=== PATIENT | male | born 1950 | race Caucasian/White ===

== ENCOUNTER 2018-02-01 22:24 | Emergency (ER) | payer SELFPAY ==
[~2018-02-01] VITALS: Ht 193 cm; Wt 109.8 kg
[2018-02-01 22:51] LABS: BASOPHILS ABSOLUTE AUTO 0.04 K/mm3 (0.00-0.23); BASOPHILS PERCENT AUTO 1 % (0-2); EOSINOPHILS ABSOLUTE AUTO 0.28 K/mm3 (0.00-0.68); EOSINOPHILS PERCENT AUTO 4 % (0-6); Hematocrit 38.6 % (37.0-53.0); IMMATURE GRAN ABSOLUTE AUTO 0.01 K/mm3 (0.00-0.10); IMMATURE GRAN PERCENT AUTO 0 % (0-1); LYMPHOCYTES ABSOLUTE AUTO 1.94 K/mm3 (0.84-5.20); LYMPHOCYTES PERCENT AUTO 27 % (21-46); MONOCYTES ABSOLUTE AUTO 0.81 K/mm3 (0.16-1.47); MONOCYTES PERCENT AUTO 11 % (4-13); Mean Corpuscular HGB 28.4 pg (26.0-34.0); Mean Corpuscular HGB Conc 33.7 g/dL (31.5-36.5); Mean Corpuscular Volume 85 fL (80-100); Mean Platelet Volume 10.4 fL (9.1-12.4); NEUTROPHILS ABSOLUTE AUTO 4.03 K/mm3 (1.96-9.15); NEUTROPHILS PERCENT AUTO 57 % (41-73); Platelet Count 258 K/mm3 (150-400); RDW Coefficient Variation 13.2 % (11.7-14.2); Red Blood Cell Count 4.57 M/mm3 (4.30-5.90); White Blood Cell Count 7.11 K/mm3 (4.00-11.30)
[2018-02-01 23:12] LABS: Alanine Aminotransfer (ALT/SGP 28 U/L (12-78); Albumin, Blood 3.6 g/dL (3.4-5.0); Albumin/Globulin Ratio 0.9 (0.8-1.8); Alk Phos 83 U/L (50-136); Anion Gap 7 mmol/L (6-16); Aspartate Aminotrans (AST/SGOT 46 U/L (12-37); Bilirubin, Total 0.4 mg/dL (0.1-1.0); Blood Urea Nitrogen 19 mg/dL (8-24); Bun/Creatinine Ratio 19.3 (12.0-20.0); CO2, Blood 25 mmol/L (21-32); Calcium, Blood 8.5 mg/dL (8.5-10.1); Chloride, Blood 110 mmol/L (98-108); Creatinine, Blood 0.99 mg/dL (0.60-1.20); Globulin, Blood 4.1 g/dL (2.2-4.0); Glomerular Filtration Rate >60 (60-); Glucose, Blood 89 mg/dL (70-99); Sodium, Blood 142 mmol/L (136-145); Total Protein, Blood 7.7 g/dL (6.4-8.2); Troponin I <0.015 ng/mL (0.000-0.040)
[2018-02-01] MEDS ORDERED: CARV6.25 PO (23:46)
[2018-02-01] MEDS ORDERED: NORT25 PO (23:46)
[2018-02-01] MEDS ORDERED: GUAI600T33 PO (23:47)
[2018-02-01] MEDS ORDERED: CYCL10 PO (23:48)
[2018-02-01] MEDS ORDERED: ALPR1 PO (23:48)
[2018-02-01] MEDS ORDERED: DOCU100 PO (23:49)
[2018-02-01] MEDS ORDERED: ALBU90OI61 INH (23:49)
== END 2018-02-02 01:22 | disposition home or self-care (01) ==
LOC: ER 22:24
PROVIDERS: Emergency Medicine
DX: R07.89 Other chest pain (principal); J44.9 Chronic obstructive pulmonary disease, unspecified; Z87.891 Personal history of nicotine dependence
CPT/HCPCS: 71046; 80053; 84484; 85025; 93005; 93010; 96374; 96375; 99284; J2405; J3010

== ENCOUNTER 2021-04-22 05:55 | Day surgery (SDC) | payer OTHER ==
[~2021-04-22] VITALS: Ht 193 cm; Wt 112.2 kg
[~2021-04-22 05:55] MED LIST: ALBU90OI61 INH; ALPR1 PO; BENZ100A PO; CARV25 PO; CARV6.25 PO; CHLO25B PO; CYCL10 PO; DOCU100 PO; GUAI600T33 PO; IBUP800 PO; Mucus Relief400 MG PO; NORT25 PO; Nortriptyline H50 MG PO; SENNA LAXATIVE8.6 MG PO; SYMBICORT 160-4.6 GM INH; TIOT18 INH; VITAMIN B125000 MC1 PO; XOPENEX HFA15 GM INH
[2021-04-22] MEDS ORDERED: GLUC500 (06:28)
--- NOTE | 2021-04-22 07:34 | NUR ---
04/22/21 0734 Carmen Muhammad History, Chart, Medications and Allergies reviewed before start of procedure.Patient confirms NPO status and agrees with scheduled surgery.MONITOR INTACT WITH CONTINUOUS PULSE OXIMETRY AND INTERMITTENT BP.O2 VIA N/C INTACT THROUGHOUT SEDATION/PROCEDURE. See Anesthesia record
--- NOTE | 2021-04-22 09:02 | NUR ---
Patient up to Ambulate independently. Gait steady. Discharge instructions reviewed with patient AND IN CONSULT ROOM. INSTRUCTIONG GIVEN AND DEMONSTRATED ON HOW TO USE PEG TUBE FOR MEDICATIONS AND FEEDINGS BY ALEXY RN AND DESHAWN RN. QUESTIONS ANSWERED.Patient AND verbalizes understanding. Copy given to patient to take home. Discharged via wheelchair to private car for ride home WITH
== END 2021-04-22 09:00 | disposition home or self-care (01) ==
LOC: ORSCMMR 05:55 → ORD 07:30 → ORSCMMR 07:30
PROVIDERS: Surgery
PROC: 0DH63UZ Insertion of Feeding Device into Stomach, Percutaneous Approach (ICD-10-PCS; principal; 2021-04-22 07:30)
DX: R13.12 Dysphagia, oropharyngeal phase (principal); I10 Essential (primary) hypertension; J44.9 Chronic obstructive pulmonary disease, unspecified; Z87.891 Personal history of nicotine dependence; G47.33 Obstructive sleep apnea (adult) (pediatric); Z79.899 Other long term (current) drug therapy; B19.20 Unspecified viral hepatitis C without hepatic coma
CPT/HCPCS: J0690; J2704; J3010; J7120

== ENCOUNTER 2023-08-06 06:01 | Day surgery (SDC) | payer OTHER ==
[2023-08-06] VITALS (17 sets, daily range): BP systolic 95–138; BP diastolic 47–88
[~2023-08-06] VITALS: Ht 193 cm; Wt 105.4 kg
[~2023-08-06 06:01] MED LIST changes: +CARV25; -CARV25 PO; +GLUC500; +IBUP800; -IBUP800 PO; +METO10 PO; +Nortriptyline H50 MG; -Nortriptyline H50 MG PO; +SLEEPING MED TUBE
--- NOTE | 2023-08-06 07:01 | NUR ---
History, Chart, Medications and Allergies reviewed before start of procedure. Lungs clear T/O to Auscultation. Patient confirms NPO status and agrees with scheduled surgery. Pre-Op teaching done. Pt verbalizes understanding. Patient reports completing Chlorhexadine shower X2 prior to admission to hospital.
--- NOTE | 2023-08-06 10:49 | NUR ---
PT ARRIVED TO THE ROOM AT APPROXIMATELY 1050. PT IS ALERT AND ORIENTED. PAIN MANAGED AT THIS TIME. VSS. PT GIVEN SWABS TO MOISTERIZE HIS MOUTH. PT WILL REMAIN NPO SINCE HE HAS A PEG TUBE AT BASELINE.
--- NOTE | 2023-08-06 16:07 | NUR ---
SHIFT SUMMARY PT IS POD#0 FROM R [facility] WITH DR. BATISTA. PAIN MANAGED WITH ORDERED PAIN MEDICATION. PT WORKED WITH THERAPY TODAY AND IS A 1 ASSIST WHEN OOB. PT ADMINISTERING HIS OWN TUBE FEEDINGS PER HOME ROUTINE AND TOLERATING WELL. PT HAS VOIDED. PT RESTING IN HIS RECLINER, CALL LIGHT WITHIN REACH.
--- NOTE | 2023-08-06 19:19 | NUR ---
PT HAS HAD DECREASED PEDAL PULSE, CAP REFIL OF 3 SECONDS AND COOL R FOOT POST OP. DR. BATISTA NOTIFIED. WARM BLANKET PLACED THIS EVENING, PEDAL PULSE REMAINS FAINT, R FOOT IS NOW WARM AND CAP REFIL IS BRISK. TIBIAL PULSE STRONG. NOC RN NOTIFIED.
[2023-08-07 00:06] VITALS: BP 119/65
[2023-08-07 02:19] VITALS: BP 122/64
[2023-08-07 04:21] LABS: BASOPHILS ABSOLUTE AUTO 0.01 K/mm3 (0.00-0.23); BASOPHILS PERCENT AUTO 0 % (0-2); EOSINOPHILS ABSOLUTE AUTO 0.02 K/mm3 (0.00-0.68); EOSINOPHILS PERCENT AUTO 0 % (0-6); Hematocrit 35.1 % (37.0-53.0); Hemoglobin 11.7 g/dL (13.5-17.5); IMMATURE GRAN ABSOLUTE AUTO 0.05 K/mm3 (0.00-0.10); IMMATURE GRAN PERCENT AUTO 0 % (0-1); LYMPHOCYTES ABSOLUTE AUTO 0.94 K/mm3 (0.84-5.20); LYMPHOCYTES PERCENT AUTO 6 % (21-46); MONOCYTES ABSOLUTE AUTO 1.53 K/mm3 (0.16-1.47); MONOCYTES PERCENT AUTO 10 % (4-13); Mean Corpuscular HGB 29.9 pg (26.0-34.0); Mean Corpuscular HGB Conc 33.3 g/dL (31.5-36.5); Mean Corpuscular Volume 90 fL (80-100); Mean Platelet Volume 11.7 fL (9.1-12.4); NEUTROPHILS ABSOLUTE AUTO 12.59 K/mm3 (1.96-9.15); NEUTROPHILS PERCENT AUTO 83 % (41-73); Platelet Count 179 K/mm3 (150-400); RDW Coefficient Variation 13.1 % (11.7-14.2); RDW Standard Deviation 42.9 fL (35.1-46.3); Red Blood Cell Count 3.91 M/mm3 (4.30-5.90); White Blood Cell Count 15.14 K/mm3 (4.00-11.30)
[2023-08-07 04:47] LABS: Bun/Creatinine Ratio 24.1 (12.0-20.0); Calcium, Blood 7.9 mg/dL (8.5-10.1); Creatinine, Blood 0.67 mg/dL (0.60-1.20); Magnesium, Blood 2.3 mg/dL (1.6-2.4)
[2023-08-07 07:10] VITALS: BP 111/54
--- NOTE | 2023-08-07 07:39 | NUR ---
SHIFT SUMMARY POD #1 R.RONALD PT IS A&O X4, VSS, ON RA, PAIN WNL, SURGICAL DRSG C/D/I, DENIES N/T, CIRC WNL. PT IS DRESSED AND UP IN THE CHAIR THIS AM WAITING FOR THERAPY, BEDSIDE REPORT GIVEN TO DAVID PALMA.
[2023-08-07 09:29] VITALS: BP 113/73
--- NOTE | 2023-08-07 14:29 | NUR ---
DISCHARGE NOTE- PT WAS GIVEN VERBAL AND WRITTEN DISCHARGE INSTRUCTIONS AND ACKNOWLEDGED UNDERSTANDING OF THEM. PT WAS ASSISTED TO PIVOT TRANSFER TO THE WC, AND IS BEING ESCORTED OUT VIA WC BY THE [employer] SUPERVISOR. NO S&S OF DISTRESS NOTED AT THE TIME OF DISCHARGE. IV DC'D PRIOR TO DISCHARGE.
== END 2023-08-07 14:28 | disposition home or self-care (01) ==
LOC: ORSCMMR 06:01 → ORD 07:30 → ORSCMMR 07:30 → SURS 11:15 → ORSCMMR 08-07 14:28
PROVIDERS: Orthopaedic Surgery
PROC: 0SR90J9 Replacement of Right Hip Joint with Synthetic Substitute, Cemented, Open Approach (ICD-10-PCS; principal; 2023-08-06 07:30)
DX: M16.11 Unilateral primary osteoarthritis, right hip (principal); I10 Essential (primary) hypertension; J44.9 Chronic obstructive pulmonary disease, unspecified; G47.33 Obstructive sleep apnea (adult) (pediatric); B19.20 Unspecified viral hepatitis C without hepatic coma; Z79.899 Other long term (current) drug therapy
CPT/HCPCS: 36415; 72170; 80048; 83735; 85025; 94660; 94762; 97110; 97116; 97162; A9270; C1776; J0171; J0690; J0735; J1100; J1885; J2405; J2704; J2710; J2795; J3010; J7120

== ENCOUNTER 2023-08-11 12:08 | Emergency (ER) | payer OTHER ==
[~2023-08-11] VITALS: Ht 182.9 cm; Wt 104.3 kg
[2023-08-11 12:10] VITALS: BP 140/72
[2023-08-11 12:35] LABS: BASOPHILS ABSOLUTE AUTO 0.03 K/mm3 (0.00-0.23); BASOPHILS PERCENT AUTO 1 % (0-2); EOSINOPHILS ABSOLUTE AUTO 0.21 K/mm3 (0.00-0.68); EOSINOPHILS PERCENT AUTO 4 % (0-6); Hematocrit 34.1 % (37.0-53.0); Hemoglobin 11.5 g/dL (13.5-17.5); IMMATURE GRAN ABSOLUTE AUTO 0.02 K/mm3 (0.00-0.10); IMMATURE GRAN PERCENT AUTO 0 % (0-1); LYMPHOCYTES ABSOLUTE AUTO 0.78 K/mm3 (0.84-5.20); LYMPHOCYTES PERCENT AUTO 13 % (21-46); MONOCYTES ABSOLUTE AUTO 0.64 K/mm3 (0.16-1.47); MONOCYTES PERCENT AUTO 11 % (4-13); Mean Corpuscular HGB 30.1 pg (26.0-34.0); Mean Corpuscular HGB Conc 33.7 g/dL (31.5-36.5); Mean Corpuscular Volume 89 fL (80-100); Mean Platelet Volume 11.6 fL (9.1-12.4); NEUTROPHILS ABSOLUTE AUTO 4.18 K/mm3 (1.96-9.15); NEUTROPHILS PERCENT AUTO 71 % (41-73); Platelet Count 303 K/mm3 (150-400); RDW Coefficient Variation 13.2 % (11.7-14.2); RDW Standard Deviation 43.4 fL (35.1-46.3); Red Blood Cell Count 3.82 M/mm3 (4.30-5.90); White Blood Cell Count 5.86 K/mm3 (4.00-11.30)
[2023-08-11 13:03] LABS: Albumin/Globulin Ratio 0.7 (0.8-1.8); Bilirubin, Total 0.6 mg/dL (0.1-1.0); Bun/Creatinine Ratio 24.5 (12.0-20.0); Calcium, Blood 8.5 mg/dL (8.5-10.1); Creatinine, Blood 0.61 mg/dL (0.60-1.20); Globulin, Blood 4.1 g/dL (2.2-4.0); Potassium, Blood 4.2 mmol/L (3.5-5.5); Total Protein, Blood 7.1 g/dL (6.4-8.2)
== END 2023-08-11 17:14 | disposition home or self-care (01) ==
LOC: ER 12:08
PROVIDERS: Physician Assistant
DX: Z48.01 Encounter for change or removal of surgical wound dressing (principal); M79.89 Other specified soft tissue disorders; R20.8 Other disturbances of skin sensation; J44.9 Chronic obstructive pulmonary disease, unspecified; Z88.0 Allergy status to penicillin; Z88.5 Allergy status to narcotic agent; Z88.8 Allergy status to other drugs, medicaments and biological substances; Z79.899 Other long term (current) drug therapy; Z79.51 Long term (current) use of inhaled steroids; Z87.891 Personal history of nicotine dependence; Z96.641 Presence of right artificial hip joint
CPT/HCPCS: 80053; 85025

== ENCOUNTER 2024-07-14 06:55 | Day surgery (SDC) | payer OTHER ==
[~2024-07-14] VITALS: Ht 193 cm; Wt 105.8 kg
[2024-07-14] VITALS (14 sets, daily range): BP systolic 113–146; BP diastolic 67–81
[~2024-07-14 06:55] MED LIST changes: +CYCL10 PT
[2024-07-14] MEDS ORDERED: Promethazine HCl 25 MG Tab PO PRN (07:40)
[2024-07-14] MEDS ORDERED: Cyclobenzaprine HCl 10 MG Tab PT PRN (07:40)
[2024-07-14] MEDS ORDERED: OxyCODONE HCL 5 MG TAB PO PRN ×2 (07:40)
[2024-07-14] MEDS ORDERED: FLU VACC TS2024-25(6MOS UP)/PF 45 MCG/0.5 ML SYRINGE IM SCH (07:45)
[2024-07-14] MEDS ORDERED: HYDROmorphone HCl/Pf 1MG SYR IV PRN (07:45)
[2024-07-14] MEDS ORDERED: DiphenhydrAMINE HCL 25 MG Cap PO PRN (07:45)
[2024-07-14] MEDS ORDERED: Bisacodyl 10 MG Supp PR PRN (07:45)
[2024-07-14] MEDS ORDERED: CeFAZolin Sodium 2,000 MG in NS 100 ML IV SCH ×2 (07:50→18:00)
[2024-07-14] MEDS ORDERED: Metoclopramide HCl 5MG / ML 2ML Vial IV PRN (07:50)
[2024-07-14] MEDS ORDERED: Acetaminophen 500 MG Tab PO SCH ×2 (07:50→16:00)
[2024-07-14] MEDS ORDERED: Ropivacaine 0.5% HCl/Pf 123.125 MG,EPINEPHrine HCL 0.25 MG,Ketorolac Tromethamine 15 MG... INFIL SCH (07:50)
[2024-07-14] MEDS ORDERED: Lactated Ringer's 1,000 ML IV SCH ×2 (07:50)
[2024-07-14] MEDS ORDERED: Tranexamic Acid 100 ML IV SCH (07:50)
[2024-07-14] MEDS ORDERED: OxyCODONE HCL 10 MG TABCR PO SCH (07:50)
[2024-07-14] MEDS ORDERED: Ondansetron HCl 2 MG / ML 2ML Vial IV PRN (07:50)
[2024-07-14] MEDS ORDERED: Magnesium Hydroxide Conc 10 ML UDC PO PRN (07:50)
[2024-07-14] MEDS ORDERED: Chlorhexidine Mouth Care 15 ML UDC MT SCH (07:50)
[2024-07-14] MEDS ORDERED: Carvedilol 25 MG Tab PO SCH (08:00)
[2024-07-14] MEDS ORDERED: Mometasone/Formoterol MDI 200/5 mcg 13 GM INH SCH (08:05)
[2024-07-14] MEDS ORDERED: HydroCHLOROthiazide 25 mg Tab PO SCH (09:00)
[2024-07-14] MEDS ORDERED: Docusate Sodium 100 MG Cap PO SCH (09:00)
--- NOTE | 2024-07-14 09:02 | NUR ---
History, Chart, Medications and Allergies reviewed before start of procedure. Pre-Op teaching done. Pt verbalizes understanding. Patient confirms NPO status and agrees with scheduled surgery. PT BELONGINGS BAG AND CANE PLACED UNDER BED.
--- NOTE | 2024-07-14 09:03 | NUR ---
PT PUT UPPER DENTURES IN CUP AND GAVE TO AT .
[2024-07-14] MEDS ORDERED: Acetaminophen 160MG / 5ML 10.15 UDC PO ONE (09:25)
[2024-07-14] MEDS ORDERED: propofoL 20 ML IV ONE (09:47)
[2024-07-14] MEDS ORDERED: SuccINYLCHOLINE Chloride 100 MG/5 ML 5MLSYR ONE (09:48)
[2024-07-14] MEDS ORDERED: FentaNYL Citrate 50 MCG/ML 2 ML Injection ONE ×2 (09:48→10:22)
[2024-07-14] MEDS ORDERED: Rocuronium Bromide 10 MG/ML 5ML Injection IV ONE (10:10)
--- NOTE | 2024-07-14 10:37 | NUR ---
07/14/24 Anita Araiza SMALL REDDENED AREA SIZE OF A PENCIL ERASER NOTED ON PATIENT'S RIGHT LOWER DEAN. DR. BATISTA NOTIFIED.
[2024-07-14] MEDS ORDERED: ePHEDrine Sulfate 50 MG/ML 1ML Injection ONE (11:10)
[2024-07-14] MEDS ORDERED: EpiNEPhrine 1 MG/1 ML 1ML Vial ONE (11:11)
[2024-07-14] MEDS ORDERED: Ondansetron HCl 2 MG / ML 2ML Vial ONE (11:15)
[2024-07-14] MEDS ORDERED: Sugammadex Sodium 200 MG/2ML SDV (100 MG/ML) ONE (11:35)
[2024-07-14] MEDS ORDERED: Ketorolac Tromethamine 15mg Vial IV SCH (12:00)
[2024-07-14] MEDS ORDERED: Ketorolac Tromethamine 30mg Vial ONE (12:19)
--- NOTE | 2024-07-14 12:50 | NUR ---
ARRIVAL TO UNIT PT ARRIVED TO UNIT FROM PACU VIA BED. PT A&0 x4. PT REPORTS NO NAUSEA; NPO. PT BASELINE USE OF PEG TUBE x3 YEARS. VSS. FAMILY AT BEDSIDE. THRIGH HIGH HÉCTOR HOSE TO RLE c GAUZE OVER INCISION SITE, C/D/I. POLAR PACK IN USE. PT REPORTS BASELINE PAIN OF 3/10, REPORTS NO INCREASED PAIN TO SURGICAL AREA. NO NEEDS STATED AT THIS TIME. CALL LIGHT IN REACH, BED IN LOWEST POSITION, ORIENTED TO UNIT.
[2024-07-14] MEDS ORDERED: Acetaminophen 160MG / 5ML 10.15 UDC PO SCH (16:00)
[2024-07-14] MEDS ORDERED: Carvedilol 25 MG Tab PT SCH (17:00)
[2024-07-14] MEDS ORDERED: Protein Supplement 30 ML UD PT SCH ×2 (17:45→21:00)
--- NOTE | 2024-07-14 19:58 | NUR ---
SHIFT SUMMARY POD 0 R TKA. NO ACUTE CHANGES TODAY. VSS. TOLERATING DIET PER PEG TUBE. PT REPORTS LIQUACEL PER EMAR REQUIRES LARGER DILUTENT VOLUME R/T "BEING TOO THICK" FOR EASE OF DRAINGE IN TUBE. PT REPORTS TUBE CLOGGED AFTER ADMINISTRATION & ABLE TO CLEAR TUBING c HOME BRUSH SUPPLIES. OTHER MEDICATIONS ADMINISTERED VIA TUBE, PT TOLERATED WELL. PT REPORTS PAIN TOLERABLE, MEDICATED PER EMAR. GAUZE TO INCISION SITE C/D/I c SCANT SANG DRAINAGE AT TOP OF DRESSING. POLAR PACK IN USE. PHYSCIAL THERAPY WORKED c PATIENT, PT TOLERATES AMB WELL c USE OF HOME FWW. IV ABX INFUSING PER EMAR. VOIDING USING URINAL. ANTICIPATED DISHCARGE IN AM. CALL LIGHT IN REACH, PT RESTING IN CHAIR, REPORT GIVEN TO ERICK PALMA.
[2024-07-14] MEDS ORDERED: Nortriptyline HCl 50 MG Cap PT SCH (21:00)
[2024-07-15 05:05] LABS: BASOPHILS ABSOLUTE AUTO 0.03 K/mm3 (0.00-0.23); BASOPHILS PERCENT AUTO 0 % (0-2); EOSINOPHILS ABSOLUTE AUTO 0.15 K/mm3 (0.00-0.68); EOSINOPHILS PERCENT AUTO 2 % (0-6); Hematocrit 36.8 % (37.0-53.0); Hemoglobin 12.1 g/dL (13.5-17.5); IMMATURE GRAN ABSOLUTE AUTO 0.02 K/mm3 (0.00-0.10); IMMATURE GRAN PERCENT AUTO 0 % (0-1); LYMPHOCYTES ABSOLUTE AUTO 0.98 K/mm3 (0.84-5.20); LYMPHOCYTES PERCENT AUTO 12 % (21-46); MONOCYTES ABSOLUTE AUTO 0.75 K/mm3 (0.16-1.47); MONOCYTES PERCENT AUTO 9 % (4-13); Mean Corpuscular HGB 29.4 pg (26.0-34.0); Mean Corpuscular HGB Conc 32.9 g/dL (31.5-36.5); Mean Corpuscular Volume 89 fL (80-100); NEUTROPHILS ABSOLUTE AUTO 6.04 K/mm3 (1.96-9.15); NEUTROPHILS PERCENT AUTO 76 % (41-73); Platelet Count 201 K/mm3 (150-400); RDW Coefficient Variation 12.8 % (11.7-14.2); Red Blood Cell Count 4.12 M/mm3 (4.30-5.90); White Blood Cell Count 7.97 K/mm3 (4.00-11.30)
[2024-07-15 05:37] VITALS: BP 124/69
[2024-07-15 05:51] LABS: Calcium, Blood 8.3 mg/dL (8.5-10.1); Creatinine, Blood 0.7 mg/dL (0.60-1.20); Magnesium, Blood 2.1 mg/dL (1.6-2.4); Potassium, Blood 4.3 mmol/L (3.5-5.5)
--- NOTE | 2024-07-15 06:06 | NUR ---
SHIFT SUMMARY PT IS POD1 FOR R TKA. 1 ASST W/ FWW AND GB TO BATHROOM, VOIDING, MANAGING PEG TUBE AND FEEDINGS INDEPENDENTLY. PT NPO AT BASELINE. DRESSING ON R KNEE C/D/I, CAP REFILL 2 SECS IN R TOES. HÉCTOR FRIAS, POLAR PACK ON. VSS. PT REPORTS TOLERABLE PAIN AFTER MEDICATING W/ SCHEDULED TORADOL AND TYLENOL. USING CALL LIGHT APPROPRIATELY.
[2024-07-15 07:26] VITALS: BP 128/74
[2024-07-15] MEDS ORDERED: SYMBICORT 160-4.6 GM INH (08:56)
[2024-07-15] MEDS ORDERED: ACET500 PO (08:56)
[2024-07-15] MEDS ORDERED: ASPI81CH PO (08:56)
[2024-07-15] MEDS ORDERED: OXYC5 PO (08:57)
[2024-07-15] MEDS ORDERED: Aspirin 81 MG Chew PO SCH (09:00)
--- NOTE | 2024-07-15 10:55 | NUR ---
DISCHARGE SUMMARY PT DC'd VIA WHEELCHAIR TO POV DRIVEN BY DAUGHTER. POD 1 R TKA. VSS. TOLERATING PEG TUBE DIET. CLEARED PHYSCIAL THERAPY, AMBULATES USING HOME FWW c SBA. VOIDING IND. PT REPORTS PAIN TOLERABLE, MEDICATED PER EMAR. GAUZE c SCANT SANG DRAINAGE, OTHERWISE C/D/I. HÉCTOR HOSE IN USE. ADDITIONAL GAUZE DRESSINGS PROVIDED TO PT. DISCHARGE INSTRUCTIONS GIVEN, PT VERBALIZES UNDERSTANDING. IV REMOVED. ALL PERSONAL BELONGINGS c PT.
== END 2024-07-15 11:00 | disposition home or self-care (01) ==
LOC: ORSCMMR 06:55 → ORD 10:15 → SURS 12:42 → ORSCMMR 07-15 11:00 → ORD 07-21 07:30
PROVIDERS: Orthopaedic Surgery
PROC: 8E0Y0CZ Robotic Assisted Procedure of Lower Extremity, Open Approach (ICD-10-PCS; principal; 2024-07-14 10:15)
PROC: 0SRC0JA Replacement of Right Knee Joint with Synthetic Substitute, Uncemented, Open Approach (ICD-10-PCS; principal; 2024-07-14 10:15)
DX: M17.11 Unilateral primary osteoarthritis, right knee (principal); I10 Essential (primary) hypertension; J44.9 Chronic obstructive pulmonary disease, unspecified; G47.33 Obstructive sleep apnea (adult) (pediatric); F43.10 Post-traumatic stress disorder, unspecified; Z87.891 Personal history of nicotine dependence; B19.20 Unspecified viral hepatitis C without hepatic coma; Z79.899 Other long term (current) drug therapy
CPT/HCPCS: 27447; 0055T; 36415; 73560-RT; 80048; 83735; 85025; 94760; 97110; 97116; 97162; A9270; C1713; C1776; J0171; J0330; J0690; J0735; J1885; J2405; J2704; J2795; J3010; J7120

== ENCOUNTER → 2024-10-08 | Outpatient (CLI) | payer OTHER ==
[~2024-10-08] MED LIST changes: +ACET500 PO; +ASPI81CH PO; +OXYC5 PO
== END | disposition home or self-care (01) ==
LOC: LAB SHORT 11:17 → LAB 11:17
DX: J44.1 Chronic obstructive pulmonary disease with (acute) exacerbation (principal)
CPT/HCPCS: 87070; 87077; 87186; 87205

== ENCOUNTER 2024-11-20 06:31 | Day surgery (SDC) | payer OTHER ==
[2024-11-20] VITALS (10 sets, daily range): BP systolic 132–155; BP diastolic 76–96
[~2024-11-20] VITALS: Ht 193 cm; Wt 107.4 kg
[~2024-11-20 06:31] MED LIST changes: +B-121000 MC3 PO; +CALCIUM 250-VI1 EAC1 PO
[2024-11-20] MEDS ORDERED: Lactated Ringer's 1,000 ML IV SCH (06:35)
[2024-11-20] MEDS ORDERED: FentaNYL Citrate 50 MCG/ML 2 ML Injection ONE (07:25)
[2024-11-20] MEDS ORDERED: Ondansetron HCl 2 MG / ML 2ML Vial ONE (07:25)
[2024-11-20] MEDS ORDERED: Dexamethasone Sod Phos 10 MG/ML 1ML VIAL ONE (07:25)
[2024-11-20] MEDS ORDERED: Rocuronium Bromide 10 MG/ML 5ML Injection IV ONE (07:25)
[2024-11-20] MEDS ORDERED: propofoL 20 ML IV ONE (07:25)
[2024-11-20] MEDS ORDERED: Lidocaine HCl 2% 20 ML MDV ONE (07:27)
[2024-11-20] MEDS ORDERED: Ketorolac Tromethamine 30mg Vial ONE (07:54)
[2024-11-20] MEDS ORDERED: Sugammadex Sodium 200 MG/2ML SDV (100 MG/ML) ONE (07:57)
[2024-11-20] MEDS ORDERED: HYDROmorphone HCl 0.5 MG/0.5 ML SYR IV PRN (08:00)
[2024-11-20] MEDS ORDERED: Ondansetron HCl 2 MG / ML 2ML Vial IV PRN (08:05)
[2024-11-20] MEDS ORDERED: FentaNYL Citrate 50 MCG/ML 2 ML Injection IV PRN (08:05)
--- NOTE | 2024-11-20 09:43 | NUR ---
DISCHARGE: Patient up to Ambulate independently WITH CANE. Gait steady. Discharge instructions reviewed with patient. Patient verbalizes understanding. Copy given to patient to take home, WELL FAMILY. SUPPLIES SENT WITH PT. ESTHER OP NOTE (COPY) SENT WITH PT PER DR COLLAZO (FOR MEASUREMENTS). Patient States Post-Procedure ride home has been arranged. Discharged via wheelchair to private car for ride home. DR COLLAZO CAME TO BEDSIDE RECENTLY WHILE FAMILY WAS HERE AND ANSWERED ALL OF PT'S/FAMILY'S QUESTIONS. DR COLLAZO REPORTS MAY START FEEDING ANYTIME.
== END 2024-11-20 09:43 | disposition home or self-care (01) ==
LOC: ORSCMMR 06:31 → ORD 07:30 → ORSCMMR 09:43 → ORD 11:00
PROVIDERS: Surgery
PROC: 0DP68UZ Removal of Feeding Device from Stomach, Via Natural or Artificial Opening Endoscopic (ICD-10-PCS; principal; 2024-11-20 07:30)
DX: Z93.1 Gastrostomy status (principal); I10 Essential (primary) hypertension; J44.9 Chronic obstructive pulmonary disease, unspecified; G47.33 Obstructive sleep apnea (adult) (pediatric); Z87.891 Personal history of nicotine dependence; F41.9 Anxiety disorder, unspecified; F43.10 Post-traumatic stress disorder, unspecified; Z79.899 Other long term (current) drug therapy
CPT/HCPCS: C1769; J1100; J1885; J2405; J2704; J3010; J7120